=== PATIENT | female | born 1955 | race Caucasian/White ===

== ENCOUNTER → 2020-11-08 10:49 | Outpatient (CLI) | payer MEDICARE, SELFPAY ==
--- NOTE | ~2020-11-08 | XR_ITS ---
EXAMINATION: XR abdomen/kub 1V INDICATION: Constipation, unspecified TECHNIQUE: Supine views of the abdomen were obtained on 2 radiographs. COMPARISON: 06/10/2004 FINDINGS: The bowel gas pattern is normal. There is a moderate volume of colonic stool. No dilated lo ops of bowel are evident. The visualized lung bases are clear. There is severe lumbar spondylosis. Mo derate bilateral hip osteoarthritis is noted. A lamellated calcification of the right upper quadrant is consistent with cholelithiasis. There is S-shaped curvature of the thoracolumbar spine with a frac tured spine stabilization latanya. IMPRESSION: 1. Nonspecific bowel gas pattern. Reviewed, dictated and finalized at location A. GAUGER
== END ==
PROVIDERS: PCP Internal Medicine; Visit Provider Nurse Practitioner
DX: K59.00 Constipation, unspecified (principal)
CPT/HCPCS: 74018

== ENCOUNTER → 2021-02-04 12:10 | Outpatient (CLI) | payer MEDICARE, SELFPAY ==
--- NOTE | ~2021-02-04 | DEXA_ITS ---
Bone Density Report Name: Connie Rivera Age: 65 Sex: Female Ethnicity: White Date of : 1955 Indication: postmenopausal; screening for osteoporosis; parental hip fracture; Referring Provider: Luisito Mccray Study: Bone densitometry was performed. Exam Date: February 04, 2021 Accession number: [id number] Bone Density: Region BMD T-score Z-score Classification Femoral Neck (Left) 0.615 -2.1 -0.6 Osteopenia Total Hip (Left) 0.771 -1.4 -0.1 Osteopenia Femoral Neck (Right) 0.671 -1.6 -0.1 Osteopenia Total Hip (Right) 0.779 -1.3 -0.1 Osteopenia Total Hip Mean 0.775 -1.4 -0.1 Osteopenia World Health Organization criteria for BMD impression classify patients as: Normal (T-score at or above -1.0), Osteopenia (T-score between -1.0 and -2.5), or Osteoporosis (T-score at or below -2.5). 10-year Fracture Risk(1): Major Osteoporotic Fracture 20% Hip Fracture 3.2% Reported Risk Factors: [place] (), Neck BMD=0.615, BMI=27.7, parental fracture, smoking (1) FRAX(R) Version 3.08. Fracture probability calculated for an untreated patient. Fracture probability may be lower if the patient has received treatment. Clinical Information Provided by Patient: Parent has had a hip fracture Smokes Has used the following medications: Vitamin D Patient maximum height was 64.5 Menopause Age: 45 Drinks caffeinated beverages Onset of menses at age 12 Number of children 0 Impression: The patient has low bone mass, based on the Left Femoral Neck T-score. The patient has an estimated ten-year risk of hip fracture of 3.2% and an estimated ten-year risk of major fracture of 20%, based on the WHO FRAX algorithm. The patient has risk factors, including: parental hip fracture, smoking. Discussion: BONE DENSITY IS LOW AT ONE OR MORE SKELETAL SITES. THE PATIENT'S BMD AND CLINICAL RISK FACTORS CONTRIBUTE TO THIS PATIENT'S HIGH RISK OF FRACTURE. This patient's lowest T-score is low at one or more skeletal sites. It meets the World Health Organization's (WHO) criteria for ?low bone mass? (T-score between -1.0 and -2.5). The patient's 10-year risk of hip fracture and 10 year risk of a major osteoporotic fracture as calculated by FRAX exceeds the threshold where pharmacological therapy is recommended by the National Osteoporosis Foundation (NOF). However, all treatment decisions require clinical judgment and consideration of individual patient factors, including patient preferences, comorbidities, previous drug use, risk factors not captured in the FRAX model (e.g., frailty, falls, vitamin D deficiency, increased bone turnover, interval significant decline in bone density) and possible under or overestimation of fracture risk by FRAX. The patient should follow a healthful lifestyle (good nutrition with adequate calcium and vitamin D, and ye
== END ==
PROVIDERS: PCP Internal Medicine; Visit Provider Internal Medicine
DX: Z78.0 Asymptomatic menopausal state (principal); M85.852 Other specified disorders of bone density and structure, left thigh; M85.851 Other specified disorders of bone density and structure, right thigh
CPT/HCPCS: 77080

== ENCOUNTER → 2021-08-16 05:28 | Outpatient (CLI) | payer MEDICARE, SELFPAY ==
[2021-08-17 01:26] LABS: SARS-CoV-2 RNA PCR Negative
== END ==
PROVIDERS: PCP Internal Medicine; Visit Provider Internal Medicine
DX: R68.89 Other general symptoms and signs (principal); Z20.822 Contact with and (suspected) exposure to COVID-19
CPT/HCPCS: C9803; U0003; U0005

== ENCOUNTER → 2021-11-01 09:23 | Outpatient (REF) | payer MEDICARE, SELFPAY | LOC: ANHLAB 09:23 | PROVIDERS: PCP Internal Medicine; Visit Provider Nurse Practitioner | DX: D49.2 Neoplasm of unspecified behavior of bone, soft tissue, and skin (principal) | CPT/HCPCS: 88305 ==

== ENCOUNTER → 2022-08-07 12:35 | Outpatient (CLI) | payer MEDICARE, SELFPAY ==
--- NOTE | ~2022-08-07 | MM_ITS ---
EXAMINATION: MM screening sonam BI w drew HISTORY: Screening mammogram, family history of breast cancer in her sister. TECHNIQUE: Craniocaudal and mediolateral oblique 3-D tomosynthesis images were obtained and synthetic 2-D images were generated. CAD analysis was submitted and interpreted. COMPARISON: 07/04/2019, 05/27/2018, 05/20/2018, 09/04/2016 BREAST PARENCHYMAL COMPOSITION: There are scattered areas of fibroglandular density. FINDINGS: There is no suspicious mass, calcification, or architectural distortion to suggest malignan cy in either breast. There has been no suspicious interval change. IMPRESSION: 1. No mammographic evidence of malignancy. 2. Recommend routine screening mammography in one year. BI-RADS Category 1: Negative Reviewed, dictated and finalized at location A.
== END ==
PROVIDERS: PCP Internal Medicine; Visit Provider Obstetrics & Gynecology
DX: Z12.31 Encounter for screening mammogram for malignant neoplasm of breast (principal)
CPT/HCPCS: 77063; 77067

== ENCOUNTER 2022-08-13 09:43 | Outpatient (CLI) | payer MEDICARE, SELFPAY ==
--- NOTE | ~2022-08-13 | CT_ITS ---
EXAMINATION: CT lung screening DATE: 08/13/2022 10:37 INDICATION: Lung cancer screening TECHNIQUE: Computed tomography (CT) of the chest was performed without intravenous contrast. The dose -length product was 82.65 mGy-cm. Automated exposure control and iterative reconstruction technique w ere employed. COMPARISON: CT dated 01/15/2019 FINDINGS: Heart size normal. No thoracic lymphadenopathy. Mild atherosclerosis. No significant pleura l or pericardial effusion. Gallstones. There is a broken Kate latanya which is chronic. There is ap ical pleural thickening/scarring. Mild emphysema. No endobronchial lesions. There is dextroscoliosis of the thoracic spine. No suspicious pulmonary nodules or masses. IMPRESSION: 1. Lung-RADS category 1: Negative. Continue annual screening with noncontrast low-dose chest CT in 12 months. Reviewed, dictated and finalized at location A. IMPRESSION: 1. Lung-RADS category 1: Negative. Continue annual screening with noncontrast l ow-dose chest CT in 12 months.
== END 2022-08-13 09:44 | disposition home or self-care (01) ==
PROVIDERS: PCP Internal Medicine; Visit Provider Internal Medicine
DX: Z12.2 Encounter for screening for malignant neoplasm of respiratory organs (principal); Z87.891 Personal history of nicotine dependence
CPT/HCPCS: 71271

== ENCOUNTER 2023-08-06 08:10 | Outpatient (CLI) | payer MEDICARE, SELFPAY ==
--- NOTE | 2023-08-06 13:35 | WPDPFTINT ---
PFT Procedure Performed PFT Procedure Performed Spirometry with Pre/Post Bronchodilator Plethysmography (Lung Vol) Diffusing Cap (DLCO) Flow Vol Loop PFT Interpretation This is a pulmonary function test with pre and post-bronchodilator spirometry, plethysmography and diffusing capacity. The test was performed and results interpreted in accordance with the 2019 and 2005 ATS/ERS Task Force guidelines respectively using the Global Lung Function Initiative-2012 reference equations. Patient demonstrated good effort and cooperation. Reproducibility criteria were met. The quality of the pre bronchodilator spirometry maneuver was Grade A and post bronchodilator spirometry maneuver was Grade A. Findings: Spirometry: The contour the inspiratory and expiratory flow tracing are normal. The pre bronchodilator FVC is 2.69 L, 92% predicted. The pre bronchodilator FEV1 is 2.12 L, 93% predicted. The pre bronchodilator FEV1: FVC ratio 79%. The post bronchodilator FVC is 3.01 L, representing a 12% increase. The post bronchodilator FEV1 is 2.31 L, representing a 9% increase. The post bronchodilator FEV1: FVC ratio 77%. Plethysmography: The total lung capacity is 5.20 L, 102% predicted. The functional residual capacity is 3.00 L, 103% predicted. The residual volume is 2.16 L, 100% predicted. Diffusing capacity: Diffusing capacity unadjusted for hemoglobin and carboxyhemoglobin is 14.5, 70% predicted. The diffusing capacity adjusted for alveolar volume is 3.47, 80% predicted. Impression: The spirometry is normal without evidence of an obstructive abnormality. There is significant improvement after inhaling a single dose of albuterol. The lung volumes are normal. The diffusing capacity is normal. There are no prior studies for comparison
== END 2023-08-06 08:11 | disposition home or self-care (01) ==
PROVIDERS: PCP Family Medicine; Visit Provider Physician Assistant
DX: J43.9 Emphysema, unspecified (principal)
CPT/HCPCS: 94060; 94726; 94729

== ENCOUNTER 2024-01-01 08:48 | Outpatient (CLI) | payer MEDICARE, SELFPAY ==
--- NOTE | ~2024-01-01 | CT_ITS ---
CT of the Abdomen and Pelvis: Indication: Abdominal distention Technique: 2.5 mm axial scans were obtained through the abdomen and pelvis following intravenous adm inistration of 100 cc of Omnipaque 350. Dose reduction technique was used on this scan by utilizing a utomated exposure control and iterative reconstruction technique. The dose-length product (DLP) was 3 73.35 mGy-cm. Findings: Scans through the lung bases are unremarkable. The liver, spleen, pancreas, adrenals and kidneys are within normal limits. Calcified gallstone prese nt. There are atherosclerotic calcifications of the aorta. No lymphadenopathy. Visualized bowel loops are unremarkable. No ascites. Impression: Cholelithiasis. Reviewed, dictated and finalized at location M. [facility] Impression: Cholelithiasis.
== END 2024-01-01 08:49 ==
PROVIDERS: PCP Internal Medicine Gastroenterology; Visit Provider Physician Assistant Medical
DX: R14.0 Abdominal distension (gaseous) (principal); R10.9 Unspecified abdominal pain; K80.20 Calculus of gallbladder without cholecystitis without obstruction
CPT/HCPCS: 74160; Q9967

== ENCOUNTER 2024-03-21 11:46 | Outpatient (CLI) | payer MEDICARE, SELFPAY ==
--- NOTE | ~2024-03-21 | CT_ITS ---
CT Scan of the Chest without Contrast: Clinical Indication: Lung cancer screening, nicotine dependence Technique: Contiguous sections were acquired throughout the chest without intravenous contrast. Dose reduction technique was used on this scan by utilizing automated exposure control and iterative recon struction technique. The dose-length product (DLP) was 61.50 mGy-cm. COMPARISON: 08/13/2022 Findings: There is no evidence of any significant mediastinal, hilar or axillary lymphadenopathy. The mediastin al soft tissues appear normal. There is no evidence of pleural or pericardial effusion. The lungs are clear. No pulmonary nodules or infiltrates are noted. Images through the upper abdomen reveal calcified gallstone. Impression: Lung RADS 1: Negative. 12 month follow-up screening CT advised. Reviewed, dictated and finalized at location . Impression: Lung RADS 1: Negative. 12 month follow-up screening CT advised.
== END 2024-03-21 11:47 ==
LOC: MICIMG 11:49
PROVIDERS: PCP Family Medicine; Visit Provider Physician Assistant
DX: Z12.2 Encounter for screening for malignant neoplasm of respiratory organs (principal); Z87.891 Personal history of nicotine dependence
CPT/HCPCS: 71271

== ENCOUNTER 2024-05-13 12:50 | Outpatient (CLI) | payer MEDICARE, SELFPAY ==
--- NOTE | ~2024-05-13 | XR_ITS ---
XR foot LT min 3V Ordering provider: Estelle Couch History: . 1st toe pain for 6-8 weeks, no known injury . Comparison: None. FINDINGS: BONES: No acute fracture or dislocation. Calcaneal spur is seen. JOINT SPACES: Narrowing of the first metatarsophalangeal joint. No tarsal coalition. SOFT TISSUES: Normal. IMPRESSION: No acute osseous abnormality left foot. Osteoarthritic changes of the first metatarsophalangeal joint. Reviewed, dictated and finalized at location A.
== END 2024-05-13 12:51 ==
LOC: MICIMG 12:52
PROVIDERS: PCP Family Medicine; Visit Provider Student in an Organized Health Care Education/Training Program
DX: M19.072 Primary osteoarthritis, left ankle and foot (principal)
CPT/HCPCS: 73630

== ENCOUNTER 2024-06-11 00:45 | Day surgery (SDC) | payer MEDICARE, SELFPAY ==
--- NOTE | 2024-06-04 13:20 | PC.NURSE ---
6 attemtps to contact patient for pre-op interview and instructions with vm received with messages left to call us back with no return calls received. Person to notify as Fatmata brooks called and voicemail received- message left to contact pt or to call us with any information or new #'s.
[2024-06-06 11:46] VITALS: BMI 26.9
[2024-06-11 08:21] VITALS: BP 109/76; PULSE 104; RESP 18; TEMP 36.2; O2SAT 98; BMI 26.1
[2024-06-11] MEDS: LACTATED RINGERS 1,000 ML 150 ML IV CONT (08:34)
--- NOTE | 2024-06-11 09:17 | PM.HPGS ---
History of Present Illness History of Present Illness Consent: Risks, benefits, and alternatives have been discussed and questions answered. Patient agrees to proceed with procedure. Chief complaint: neoplasm screening Narrative: Connie Rivera is a 68 year old female here for screening colonoscopy, last one 2016 Review of Systems Review of Systems: All systems reviewed & are unremarkable except as noted in HPI and below PMFSH Past Medical History Medical History (Updated 06/09/24 @ 08:41 by Marleny Fermin PATTERN MECH[employer]IC) Anxiety Arthritis lower back Benign essential hypertension BMI 26.0-26.9,adult Change in stool caliber Cholelithiasis Colon cancer screening Depression DJD (degenerative joint disease), multiple sites Dyshidrotic eczema Encounter to establish care Exophthalmos Gastroesophageal reflux disease without esophagitis Graves disease Hyperlipidemia Memory impairment Mixed hyperlipidemia SRINIVAS on CPAP Scoliosis Vitamin D deficiency Surgical History Surgical History History of cryosurgery (~1979) History of eye surgery left eye muscle 1980s History of spinal fusion (~1968) echevarria latanya for scoliosis Family History Family History Grandparent Cerebrovascular accident maternal grandmother Father Alcohol abuse Sibling Breast cancer sister Mother Malignant neoplasm of uterus Other Family history of chronic obstructive pulmonary disease Social History Social History Smoking packs per day: 0.5 Smoking cigarettes per day: 10.0 Years smoked: 42 Smoking pack-years: 21.00 Smoking status: Former smoker Tobacco type: cigarettes Second hand tobacco smoke exposure: Yes Smoking end date: 11/19/21 Alcohol intake: former Alcohol use details: one every 2 months - wine Substance use: former Substance use type: marijuana Other substance usage details: ocassional Do You Feel Safe in your Home?: Yes Lack of Transportation: No Lack of Food: Never True Current Housing: I Have Housing Concerned About Future Housing: No Difficulty Paying Gas/Electric Bills: No Difficulty Paying for Meds: No Currently Unemployed: No Education: Bachelor's Degree Difficulty w/ Childcare or Family Care: No Living arrangements: alone Additional living arrangements comments: single Occupation/Education: retired Gender identity (if verbalized by the patient): Female Sexual Orientation (if Verbalized by the Patient): Straight or Heterosexual Spiritual care concerns: No Meds Home Medications and Allergies Home Medications Medication Instructions Recorded Confirmed Type cholecalciferol (vitamin D3) 50 50 mcg PO DAILY 07/17/22 06/09/24 History mcg (2,000 unit) capsule brimonidine 0.025 % eye drops 1 drp EACH EYE QID PRN dry eye(s) 06/26/23 06/09/24 Rx (Lumify) #7.5 mL melatonin 10 mg capsule 10 mg PO QHS 06/26/23 06/09/24 History diclofenac sodium 75 mg 75 mg PO BID PRN pain #180 tabs 07/28/23 06/09/24 Rx tablet,delayed release omeprazole 40 mg capsule,delayed 40 mg PO DAILY #100 caps 10/07/23 06/09/24 Rx release bupropion HCl 150 mg 24 hr tablet, 150 mg PO QAM #90 tabs 12/02/23 06/09/24 Rx extended release clobetasol 0.05 % topical cream 1 applic topical BID #120 grams 12/20/23 06/09/24 Rx pimecrolimus 1 % topical cream 1 applic topical BID PRN eczema 12/20/23 06/09/24 Rx (Elidel) #120 grams linaclotide 145 mcg capsule 145 mcg PO DAILY 1 month #30 caps 02/26/24 06/09/24 Rx (Linzess) pravastatin 80 mg tablet See Rx Instructions .Route 05/05/24 06/09/24 Rx .COMPLEX #100 tabs alprazolam 0.5 mg tablet (Xanax) 0.5 mg PO BID PRN anxiety #30 tabs 05/23/24 06/09/24 Rx KRILL OIL 1,200 mg BYMOUTH 06/09/24 06/09/24 History s-adenosylmethionine 400 mg tablet 400 mg PO DAILY
--- NOTE | 2024-06-11 09:26 | WPDANESEPP ---
Anes - Eval Pre Procedure Procedure: Operation Date: 06/11/24 09:30 Proposed Procedures p Screening Colonoscopy - Gerardo Alex MD Date/Time: 06/11/24 09:26 Surgeon: Zeus Pre Op Diagnosis: neoplasm screening Patient Data Age: 68 Gender: F Height: 1.63 m Weight: 69.1 kg Last Vital Signs Temp 36.2 C L 06/11/24 08:21 Pulse 104 H 06/11/24 08:21 Resp 18 06/11/24 08:21 BP 109/76 06/11/24 08:21 Pulse Ox 98 06/11/24 08:21 O2 Del Method Room Air 06/11/24 08:21 Allergies Allergy/AdvReac Type Severity Reaction Status Date / Time No Known Allergies Allergy Verified 06/11/24 08:20 Home Medications Medication Instructions Recorded Confirmed Type cholecalciferol (vitamin D3) 50 50 mcg PO DAILY 07/17/22 06/09/24 History mcg (2,000 unit) capsule brimonidine 0.025 % eye drops 1 drp EACH EYE QID PRN dry eye(s) 06/26/23 06/09/24 Rx (Lumify) #7.5 mL melatonin 10 mg capsule 10 mg PO QHS 06/26/23 06/09/24 History diclofenac sodium 75 mg 75 mg PO BID PRN pain #180 tabs 07/28/23 06/09/24 Rx tablet,delayed release omeprazole 40 mg capsule,delayed 40 mg PO DAILY #100 caps 10/07/23 06/09/24 Rx release bupropion HCl 150 mg 24 hr tablet, 150 mg PO QAM #90 tabs 12/02/23 06/09/24 Rx extended release clobetasol 0.05 % topical cream 1 applic topical BID #120 grams 12/20/23 06/09/24 Rx pimecrolimus 1 % topical cream 1 applic topical BID PRN eczema 12/20/23 06/09/24 Rx (Elidel) #120 grams linaclotide 145 mcg capsule 145 mcg PO DAILY 1 month #30 caps 02/26/24 06/09/24 Rx (Linzess) pravastatin 80 mg tablet See Rx Instructions .Route 05/05/24 06/09/24 Rx .COMPLEX #100 tabs alprazolam 0.5 mg tablet (Xanax) 0.5 mg PO BID PRN anxiety #30 tabs 05/23/24 06/09/24 Rx KRILL OIL 1,200 mg BYMOUTH 06/09/24 06/09/24 History s-adenosylmethionine 400 mg tablet 400 mg PO DAILY 06/09/24 06/11/24 History (DARIEN-e) turmeric 400 mg capsule mg PO 06/09/24 06/09/24 History Patient hx anesthesia problems: none Family hx anesthesia problems: none Results Review: All pre-operative results and documents have been reviewed as part of the pre-operative evaluation. [facility] Past Medical History Medical History Anxiety Arthritis lower back Benign essential hypertension BMI 26.0-26.9,adult Change in stool caliber Cholelithiasis Colon cancer screening Depression DJD (degenerative joint disease), multiple sites Dyshidrotic eczema Encounter to establish care Exophthalmos Gastroesophageal reflux disease without esophagitis Graves disease Hyperlipidemia Memory impairment Mixed hyperlipidemia SRINIVAS on CPAP Scoliosis Vitamin D deficiency Surgical History Surgical History History of cryosurgery (~1979) History of eye surgery left eye muscle 1980s History of spinal fusion (~1968) echevarria latanya for scoliosis Family History Family History Grandparent Cerebrovascular accident maternal grandmother Father Alcohol abuse Sibling Breast cancer sister Mother Malignant neoplasm of uterus Other Family history of chronic obstructive pulmonary disease Social History Social History Smoking packs per day: 0.5 Smoking cigarettes per day: 10.0 Years smoked: 42 Smoking pack-years: 21.00 Smoking status: Former smoker Tobacco type: cigarettes Second hand tobacco smoke exposure: Yes Smoking end date: 11/19/21 Alcohol intake: former Alcohol use details: one every 2 months - wine Substance use: former Substance use type: marijuana Other substance usage details: ocassional Do You Feel Safe in your Home?: Yes Lack of Transportation: No Lack of Food: Never True Current Housing: I Have Housing Concerned About Future
--- NOTE | 2024-06-11 09:40 | WPDANESEPPF ---
Anes - Initial Pre Proc Eval Procedure: Operation Date: 06/11/24 09:30 Proposed Procedures p Screening Colonoscopy - Gerardo Alex MD Date/Time: 06/11/24 09:40 Surgeon: Gerardo Alex MD Pre Op Diagnosis: neoplasm screening Patient Data Age: 68 Gender: F Height: 1.63 m Weight: 69.1 kg Last Vital Signs Temp 36.2 C L 06/11/24 08:21 Pulse 104 H 06/11/24 08:21 Resp 18 06/11/24 08:21 BP 109/76 06/11/24 08:21 Pulse Ox 98 06/11/24 08:21 O2 Del Method Room Air 06/11/24 08:21 Allergies Allergy/AdvReac Type Severity Reaction Status Date / Time No Known Allergies Allergy Verified 06/11/24 08:20 Home Medications Medication Instructions Recorded Confirmed Type cholecalciferol (vitamin D3) 50 50 mcg PO DAILY 07/17/22 06/09/24 History mcg (2,000 unit) capsule brimonidine 0.025 % eye drops 1 drp EACH EYE QID PRN dry eye(s) 06/26/23 06/09/24 Rx (Lumify) #7.5 mL melatonin 10 mg capsule 10 mg PO QHS 06/26/23 06/09/24 History diclofenac sodium 75 mg 75 mg PO BID PRN pain #180 tabs 07/28/23 06/09/24 Rx tablet,delayed release omeprazole 40 mg capsule,delayed 40 mg PO DAILY #100 caps 10/07/23 06/09/24 Rx release bupropion HCl 150 mg 24 hr tablet, 150 mg PO QAM #90 tabs 12/02/23 06/09/24 Rx extended release clobetasol 0.05 % topical cream 1 applic topical BID #120 grams 12/20/23 06/09/24 Rx pimecrolimus 1 % topical cream 1 applic topical BID PRN eczema 12/20/23 06/09/24 Rx (Elidel) #120 grams linaclotide 145 mcg capsule 145 mcg PO DAILY 1 month #30 caps 02/26/24 06/09/24 Rx (Linzess) pravastatin 80 mg tablet See Rx Instructions .Route 05/05/24 06/09/24 Rx .COMPLEX #100 tabs alprazolam 0.5 mg tablet (Xanax) 0.5 mg PO BID PRN anxiety #30 tabs 05/23/24 06/09/24 Rx KRILL OIL 1,200 mg BYMOUTH 06/09/24 06/09/24 History s-adenosylmethionine 400 mg tablet 400 mg PO DAILY 06/09/24 06/11/24 History (DARIEN-e) turmeric 400 mg capsule mg PO 06/09/24 06/09/24 History Patient hx anesthesia problems: none Family hx anesthesia problems: none Results Review: All pre-operative results and documents have been reviewed as part of the pre-operative evaluation. [facility] Past Medical History Medical History Anxiety Arthritis lower back Benign essential hypertension BMI 26.0-26.9,adult Change in stool caliber Cholelithiasis Colon cancer screening Depression DJD (degenerative joint disease), multiple sites Dyshidrotic eczema Encounter to establish care Exophthalmos Gastroesophageal reflux disease without esophagitis Graves disease Hyperlipidemia Memory impairment Mixed hyperlipidemia SRINIVAS on CPAP Scoliosis Vitamin D deficiency Surgical History Surgical History History of cryosurgery (~1979) History of eye surgery left eye muscle 1980s History of spinal fusion (~1968) echevarria latanya for scoliosis Family History Family History Grandparent Cerebrovascular accident maternal grandmother Father Alcohol abuse Sibling Breast cancer sister Mother Malignant neoplasm of uterus Other Family history of chronic obstructive pulmonary disease Social History Social History Smoking packs per day: 0.5 Smoking cigarettes per day: 10.0 Years smoked: 42 Smoking pack-years: 21.00 Smoking status: Former smoker Tobacco type: cigarettes Second hand tobacco smoke exposure: Yes Smoking end date: 11/19/21 Alcohol intake: former Alcohol use details: one every 2 months - wine Substance use: former Substance use type: marijuana Other substance usage details: ocassional Do You Feel Safe in your Home?: Yes Lack of Transportation: No Lack of Food: Never True Current Housing: I Have Trwv
[2024-06-11 09:47] VITALS: BP 106/71; PULSE 77; RESP 17; O2SAT 95
[2024-06-11 09:57] VITALS: BP 136/88; PULSE 75; RESP 17; O2SAT 97
[2024-06-11 10:07] VITALS: BP 112/70; PULSE 75; RESP 16; O2SAT 99
== END 2024-06-11 10:15 | disposition home or self-care (01) ==
PROVIDERS: PCP Internal Medicine; Referring Provider Nurse Practitioner Family; Visit Provider Internal Medicine Gastroenterology
PROC: 0DJD8ZZ Inspection of Lower Intestinal Tract, Via Natural or Artificial Opening Endoscopic (ICD-10-PCS; CPT 45378; principal; 2024-06-11 09:30)
DX: Z12.11 Encounter for screening for malignant neoplasm of colon (principal); K64.8 Other hemorrhoids; I10 Essential (primary) hypertension; E05.00 Thyrotoxicosis with diffuse goiter without thyrotoxic crisis or storm; E78.2 Mixed hyperlipidemia; G47.33 Obstructive sleep apnea (adult) (pediatric); E55.9 Vitamin D deficiency, unspecified; K21.9 Gastro-esophageal reflux disease without esophagitis; L30.1 Dyshidrosis [pompholyx]; F32.A Depression, unspecified; F41.9 Anxiety disorder, unspecified; Z98.1 Arthrodesis status; Z87.891 Personal history of nicotine dependence
CPT/HCPCS: G0121; J2704; J7120

== ENCOUNTER 2024-06-27 15:02 | Outpatient (CLI) | payer MEDICARE, SELFPAY ==
--- NOTE | ~2024-06-27 | MM_ITS ---
EXAMINATION: MM screening sonam BI w drew HISTORY: Screening TECHNIQUE: Craniocaudal and mediolateral oblique 3-D tomosynthesis images were obtained and synthetic 2-D images were generated. CAD analysis was submitted and interpreted. COMPARISON: Comparison to multiple prior studies sequentially, with oldest reviewed study dated 08/19. BREAST PARENCHYMAL COMPOSITION: Not dense: There are scattered areas of fibroglandular density. FINDINGS: There is no evidence of suspicious mass, calcification, or architectural distortion to sugg est malignancy in either breast. There has been no suspicious interval change. IMPRESSION: 1. No mammographic evidence of malignancy. 2. Recommend routine screening mammography in one year. BI-RADS Category 1: Negative Reviewed, dictated and finalized at location B.
== END 2024-06-27 15:03 ==
LOC: MICIMG 15:03
PROVIDERS: PCP Internal Medicine; Visit Provider Obstetrics & Gynecology
DX: Z12.31 Encounter for screening mammogram for malignant neoplasm of breast (principal)
CPT/HCPCS: 77063; 77067

== ENCOUNTER 2024-08-13 02:45 | Day surgery (SDC) | payer MEDICARE, SELFPAY ==
--- NOTE | 2024-08-06 15:19 | PC.NURSE ---
Report to the Outpatient Waiting Room, entrance under the green pavilion located off [facility], at time _1100_ on date _[id number]_. Planned Procedure Time: _1pm_.? Time changes happen often and if your time is changed the preop area will call you the afternoon before. - You and your visitor will be asked to self-screen and do not enter if you have any COVID symptoms. Please call surgeon if you need to reschedule. - A mask is optional within the hospital at this time. May have clear liquids (water, carbonated beverages, clear teas, apple juice) with a maximum of 20 ounces until 5am then nothing to drink until after surgery . - No food from midnight until time of surgery and no smoking Take only the following medications with a SIP of water on the morning of surgery: ____Bupropion DO NOT STOP ANY OF YOUR OTHER PRESCRIPTION MEDICATIONS PRIOR TO SURGERY EXCEPT THE FOLLOWING Medications to discontinue per physician ____All vitamins and supplements Date to take last ffvy___[id number] Please no make-up, nail greenlandic, hairspray, perfume, deodorant, or body powder the day of surgery.? No jewelry (including any body piercings) or valuables the day of surgery, leave them at home.? Please take a shower or bath the night before, or the morning of, surgery with an antibacterial soap.? Wear comfortable, loose fitting clothing.? - Jewelry must be removed prior to entering the operating room.? Rings and piercings that are not removed may be cut off. - The hospital will not accept responsibility for valuables.? - Please leave all valuables, including medications, at home the day of surgery. If you are going home after surgery, a licensed motor coach driver must drive you home.? - NO public transportation without another adult if you receive anesthesia. - We recommend that an adult stay with you for 24 hours following discharge. - We also recommend that you do not drive, make important decision, drink alcoholic beverages, or take any drugs that were not prescribed by your health care provider for at least 24 hours after your discharge time. Follow any additional instructions given to you from your surgeon. Telephone instructions given to __Victoria__and asked if any additional questions and then verbalized understanding. Patient advised to call surgeon office or pre surgery nurse liaison [phone] if any additional questions.
[2024-08-06 15:24] VITALS: BMI 26.8
--- NOTE | 2024-08-13 07:14 | PM.HPGS ---
History of Present Illness History of Present Illness Chief complaint: ganglion left thumb Narrative: Patient seen and examined in pre-operative holding area. No interval change in medical history or symptoms. Patient recalls previous discussion of benefits and alternatives to procedure. Continues to desire to proceed with left thumb mucous cyst excision. Reviewed procedure, post-op expectations and risks including but not limited to bleeding, infection, injury to tendon/nerve/vessel, decreased hand function, stiffness, RSD, no change or worsening of symptoms, recurrence. I discussed the possible use of assistants and their participation in the case. Patient stated understanding and signed the consent form wishing to proceed. Review of Systems Review of Systems: All systems reviewed & are unremarkable except as noted in HPI and below PMFSH Past Medical History Medical History Anxiety Arthritis lower back Benign essential hypertension BMI 26.0-26.9,adult Change in stool caliber Cholelithiasis Colon cancer screening Depression DJD (degenerative joint disease), multiple sites Dyshidrotic eczema Encounter for Papanicolaou smear for cervical cancer screening Encounter to establish care Exophthalmos Gastroesophageal reflux disease without esophagitis Graves disease Hyperlipidemia Memory impairment Mixed hyperlipidemia SRINIVAS on CPAP Scoliosis Vitamin D deficiency Surgical History Surgical History History of cryosurgery (~1979) History of eye surgery left eye muscle 1980s History of spinal fusion (~1968) echevarria latanya for scoliosis Family History Family History Grandparent Cerebrovascular accident maternal grandmother Father Alcohol abuse Sibling Breast cancer sister Mother Malignant neoplasm of uterus Other Family history of chronic obstructive pulmonary disease Social History Social History Smoking packs per day: 0.5 Smoking cigarettes per day: 10.0 Years smoked: 20 Smoking pack-years: 10.00 Smoking status: Former smoker Tobacco type: cigarettes Second hand tobacco smoke exposure: Yes Smoking end date: 08/06/21 Alcohol intake: current Alcohol use details: one every 2 months - wine Substance use: former Substance use type: marijuana Other substance usage details: ocassional Do You Feel Safe in your Home?: Yes Lack of Transportation: No Lack of Food: Never True Current Housing: I Have Housing Concerned About Future Housing: No Difficulty Paying Gas/Electric Bills: No Difficulty Paying for Meds: No Currently Unemployed: No Education: Bachelor's Degree Difficulty w/ Childcare or Family Care: No Living arrangements: alone Additional living arrangements comments: single Occupation/Education: retired Gender identity (if verbalized by the patient): Female Sexual Orientation (if Verbalized by the Patient): Straight or Heterosexual Spiritual care concerns: No Meds Home Medications and Allergies Home Medications Medication Instructions Recorded Confirmed Type cholecalciferol (vitamin D3) 50 50 mcg PO DAILY 07/17/22 08/06/24 History mcg (2,000 unit) capsule brimonidine 0.025 % eye drops 1 drp EACH EYE QID PRN dry eye(s) 06/26/23 08/06/24 Rx (Lumify) #7.5 mL diclofenac sodium 75 mg 75 mg PO BID PRN pain #180 tabs 07/28/23 08/06/24 Rx tablet,delayed release omeprazole 40 mg capsule,delayed 40 mg PO DAILY #100 caps 10/07/23 08/06/24 Rx release clobetasol 0.05 % topical cream 1 applic topical BID #120 grams 12/20/23 08/06/24 Rx pimecrolimus 1 % topical cream 1 applic topical BID PRN eczema 12/20/23 08/06/24 Rx (Elidel) #120 grams pravastatin 80 mg tablet See Rx Instructions .Route 05/05/24 08/06/24 Rx
--- NOTE | 2024-08-13 07:15 | W.PM.PROC2 ---
Procedure Note - Detailed Date of Procedure 08/13/24 Pre-op Diagnosis left thumb digital mucous cyst Post-op Diagnosis Same Procedure Performed left thumb mucous cyst excision, osteophyte excisoin and adjacent tissue transfer Surgeon Jesús Tomlinson MD Seismograph Supervisor tim montalvo pa-c Anesthesia MAC Description of Procedure INFORMED CONSENT: The patient was seen and examined and marked in the pre-op area.? The patient signed the consent form. PROCEDURE IN DETAIL:The patient taken back to OR on the stretcher in supine position. Time out performed with anesthesia, surgeon and staff agreeing on patient's name site and surgery to be performed SCDs were placed on the lower extremities and inflated. A tourniquet was placed on {left} upper extremity and antibiotics given IV After anesthesia administered sedation I injected {3}cc 1%lido and 0.5% marcaine plain for digital block in the palm The?{left upper extremity}?was prepped and draped in sterile fashion the??{left upper extremity} was? exsanguinated with Esmarch bandage and tourniquet inflated to 250mmHg I proceeded with making an elliptical incision around the thinned affected tissue over the left thumb mucous cyst through skin and dermis with a 15 blade scalpel. I extended this incision back to the IP joint. Skin flaps were elevated. I proceeded with circumferential dissection around the mucous cyst including the stalk coming back from the IP joint capsule. The cyst was transected with bipolar cautery. I identified a small osteophyte coming off of the distal phalanx. [place] elevator was used to reflect periosteum off of the osteophyte which was then rongeured until smooth. I irrigated with normal saline and used bipolar cautery to cauterize the base of the stalk. 5-0 Vicryl was used to repair the capsular defect. Even with wide underminning I was unable to primarily close the defect so i proceeded with extending my incision proximally in a curvilinear fashion to create a rotation advancement flap. The is rotated distally to allow primary closure of the skin defect and closed with 4-0 chromic suture. A dressing of xeroform, 4x4,and tube gauze was applied after the tourniquet was let down noting the hand was warm and well perfused. The patient was then awaken from anesthesia and transferred to the recovery room in stable condition.? Complications - none EBL- 0cc Disposition - home in stable conditions Tim Montalvo PA-C was essential for positioning, retraction, closure and dressing placement [facility] Billing Surgery - Charge Forward: Surgery Billing ([id number] same for tim peterson )
[2024-08-13] MEDS: LACTATED RINGERS 1,000 ML 30 ML IV CONT (09:30)
--- NOTE | 2024-08-13 09:42 | WPDANESEPPF ---
Anes - Initial Pre Proc Eval Procedure: Operation Date: 08/13/24 11:15 Proposed Procedures p Left Thumb Mucous Cyst Excision - Jesús Tomlinson MD Date/Time: 08/13/24 09:42 Surgeon: Jesús Tomlinson MD Pre Op Diagnosis: ganglion left thumb Patient Data Age: 69 Gender: F Height: 1.64 m Weight: 72 kg Allergies Allergy/AdvReac Type Severity Reaction Status Date / Time No Known Allergies Allergy Verified 08/06/24 15:21 Home Medications Medication Instructions Recorded Confirmed Type cholecalciferol (vitamin D3) 50 50 mcg PO DAILY 07/17/22 08/06/24 History mcg (2,000 unit) capsule brimonidine 0.025 % eye drops 1 drp EACH EYE QID PRN dry eye(s) 06/26/23 08/06/24 Rx (Lumify) #7.5 mL diclofenac sodium 75 mg 75 mg PO BID PRN pain #180 tabs 07/28/23 08/06/24 Rx tablet,delayed release omeprazole 40 mg capsule,delayed 40 mg PO DAILY #100 caps 10/07/23 08/06/24 Rx release clobetasol 0.05 % topical cream 1 applic topical BID #120 grams 12/20/23 08/06/24 Rx pimecrolimus 1 % topical cream 1 applic topical BID PRN eczema 12/20/23 08/06/24 Rx (Elidel) #120 grams pravastatin 80 mg tablet See Rx Instructions .Route 05/05/24 08/06/24 Rx .COMPLEX #100 tabs KRILL OIL 1,200 mg BYMOUTH DAILY 06/09/24 08/06/24 History s-adenosylmethionine 400 mg tablet 400 mg PO DAILY 06/09/24 08/06/24 History (DARIEN-e) turmeric 400 mg capsule 400 mg PO DAILY 06/09/24 08/06/24 History bupropion HCl 150 mg 24 hr tablet, 150 mg PO QAM #90 tabs 07/09/24 08/06/24 Rx extended release alprazolam 0.5 mg tablet (Xanax) 0.5 mg PO BID PRN anxiety #35 tabs 07/22/24 08/06/24 Rx linaclotide 290 mcg capsule 290 mcg Capsule#4 Samples 07/22/24 07/28/24 Sample (Linzess) linaclotide 290 mcg capsule 290 mcg PO DAILY #90 caps 08/04/24 08/06/24 Rx (Linzess) tramadol 50 mg tablet 50 mg PO Q6H PRN pain #12 tabs 08/13/24 Rx Patient hx anesthesia problems: none Family hx anesthesia problems: none Results Review: All pre-operative results and documents have been reviewed as part of the pre-operative evaluation. [facility] Past Medical History Medical History Anxiety Arthritis lower back Benign essential hypertension BMI 26.0-26.9,adult Change in stool caliber Cholelithiasis Colon cancer screening Depression DJD (degenerative joint disease), multiple sites Dyshidrotic eczema Encounter for Papanicolaou smear for cervical cancer screening Encounter to establish care Exophthalmos Gastroesophageal reflux disease without esophagitis Graves disease Hyperlipidemia Memory impairment Mixed hyperlipidemia SRINIVAS on CPAP Scoliosis Vitamin D deficiency Surgical History Surgical History History of cryosurgery (~1979) History of eye surgery left eye muscle 1980s History of spinal fusion (~1968) echevarria latanya for scoliosis Family History Family History Grandparent Cerebrovascular accident maternal grandmother Father Alcohol abuse Sibling Breast cancer sister Mother Malignant neoplasm of uterus Other Family history of chronic obstructive pulmonary disease Social History Social History Smoking packs per day: 0.5 Smoking cigarettes per day: 10.0 Years smoked: 20 Smoking pack-years: 10.00 Smoking status: Former smoker Tobacco type: cigarettes Second hand tobacco smoke exposure: Yes Smoking end date: 08/06/21 Alcohol intake: current Alcohol use details: one every 2 months - wine Substance use: former Substance use type: marijuana Other substance usage details: ocassional Do You Feel Safe in your Home?: Yes Lack of Transportation: No Lack of Food: Never True Current Housing: I Have Housing Concerned About Future Housing: No Difficulty Paying Gas/Maria
[2024-08-13 10:00] VITALS: BP 115/74; PULSE 83; RESP 16; TEMP 36.6; O2SAT 99
[2024-08-13] MEDS: ceFAZolin 2 GM/D5W 50 ML 2 GM/50 ML BAG IVPB (10:11)
[2024-08-13] MEDS: LIDO 1%/EPINEPHRINE 1:100,000 20 ML VIAL 10 ML INFILTRATE (10:23)
[2024-08-13 10:44] VITALS: BP 98/60; PULSE 63; RESP 16; O2SAT 95
[2024-08-13 11:10] VITALS: BP 122/69; PULSE 63; RESP 16; O2SAT 98
[2024-08-13 11:28] VITALS: BP 109/59; PULSE 59; RESP 16; O2SAT 97
== END 2024-08-13 11:29 | disposition home or self-care (01) ==
PROVIDERS: PCP Internal Medicine; Visit Provider Plastic Surgery
PROC: (CPT 14040; principal; 2024-08-13 11:15)
DX: M71.342 Other bursal cyst, left hand (principal); M25.742 Osteophyte, left hand; I10 Essential (primary) hypertension; E78.2 Mixed hyperlipidemia; G47.33 Obstructive sleep apnea (adult) (pediatric); K21.9 Gastro-esophageal reflux disease without esophagitis; E05.00 Thyrotoxicosis with diffuse goiter without thyrotoxic crisis or storm; E55.9 Vitamin D deficiency, unspecified; F41.9 Anxiety disorder, unspecified; F32.A Depression, unspecified; Z87.891 Personal history of nicotine dependence; F12.90 Cannabis use, unspecified, uncomplicated
CPT/HCPCS: 14040; 26210; 88305; 88309; 88311; J0690; J2704; J3010; J7120

== ENCOUNTER 2025-05-12 08:04 | Outpatient (CLI) | payer MEDICARE, SELFPAY ==
--- NOTE | ~2025-05-12 | CT_ITS ---
CT soft tissue neck w con Ordering provider: Christiano Gonzalez MD History: 69 years Female with . R22.1 - Localized swelling, RT sided mass/lump x3 days, neck . Comparison: None. Technique: CT soft tissues neck was performed with contrast. . Automated exposure control and iterat sary reconstruction technique were employed. The dose-length product was 436.92 mGy-cm. 75 mL Omnipaqu e 350 was given IV. Findings: LOWER HEAD: The visualized brain parenchyma, optic globes/orbits and mastoids are normal. The visua lized paranasal sinuses are well aerated. SALIVARY GLANDS: Possible slightly swollen right parotid gland compared to the left is not excluded. Clinical correlation advised THYROID: Normal. SUPRAHYOID DEEP SPACES: 1 cm lymph node is seen in the right parapharyngeal space. 8 mm lymph n ode seen on the left. CAROTID ARTERIES: Normal. JUGULAR VEINS: Normal. TONSILS: Normal. ORAL CAVITY: Partially obscured by dental amalgam but normal as visualized. PHARYNX, LARYNX AND TRACHEA: Patent and normal. No prevertebral soft tissue swelling. SUPERFICIAL SOFT TISSUES: Normal. No lymphadenopathy or neck mass. THORACIC INLET/VISUALIZED UPPER CHEST: Normal. SKELETAL: Age appropriate degenerative changes. Postoperative changes in the upper thoracic spine IMPRESSION: 1. No significant abnormality seen. Slightly prominent right particular the gland compared to the le ft is possible. Reviewed, dictated and finalized at location A. IMPRESSION: 1. No significant abnormality seen. Slightly prominent right particular the gl and compared to the left is possible.
[2025-05-12 08:31] LABS: Estimated Glomerular Filt Rate > 60
== END 2025-05-12 08:05 | disposition home or self-care (01) ==
PROVIDERS: PCP Internal Medicine; Visit Provider Internal Medicine
DX: R22.1 Localized swelling, mass and lump, neck (principal)
CPT/HCPCS: 70491; Q9967

== ENCOUNTER 2025-08-03 14:43 | Outpatient (CLI) | payer MEDICARE, SELFPAY ==
--- NOTE | ~2025-08-03 | CT_ITS ---
EXAMINATION:CT lung screening DATE: 08/03/2025 15:00 INDICATION: Personal history of nicotine dependence. TECHNIQUE: Computed tomography (CT) of the chest was performed without intravenous contrast. Automated exposure control and iterative reconstruction technique were employed. The dose-length product (DLP) was 92.17 mGy-cm. COMPARISON: Chest CT 03/21/2024 FINDINGS: There is stable mild scarring at right lung apex. There is mild emphysema. No pleural effusion. The heart size is normal. There are coronary artery calcifications. There are calcifications of the aortic valve. No pericardial effusion. There is a gallstone in the gallbladder, which is contract ed. There is dextroscoliosis of thoracic spine. There is multilevel fusion of the thoracic and lumbar vertebra. There is a broken posterior distraction latanya. IMPRESSION: 1. Lung-RADS category 2: Benign appearance or behavior. Continue annual screening with noncontrast low-dose chest CT in 12 months. Reviewed, dictated and finalized at location E. IMPRESSION: 1. Lung-RADS category 2: Benign appearance or behavior. Continue annual screeni ng with noncontrast low-dose chest CT in 12 months.
== END 2025-08-03 14:44 | disposition home or self-care (01) ==
LOC: MICIMG 14:44
PROVIDERS: PCP Internal Medicine; Visit Provider Physician Assistant
DX: Z12.2 Encounter for screening for malignant neoplasm of respiratory organs (principal); Z87.891 Personal history of nicotine dependence
CPT/HCPCS: 71271